=== PATIENT | female | born 1975 | race Two or more races ===

== ENCOUNTER 2024-03-26 11:38 | Emergency (ER) | payer BC ==
[~2024-03-26] VITALS: Ht 172.7 cm; Wt 81.6 kg
[2024-03-26] MEDS ORDERED: SINGULAIR4 M1 PO (11:54)
[2024-03-26] MEDS ORDERED: PRISTIQ25 MG PO (11:54)
[2024-03-26 11:55] VITALS: BP 118/79; O2SAT 100
[2024-03-26] MEDS ORDERED: PROAIR RESPICL90 MCG (11:55)
[2024-03-26] MEDS ORDERED: AMOX-CLAV 875-1 EACH PO (12:36)
[2024-03-26] MEDS ORDERED: CEFTRIAXONE SODIUM 1,000 MG VIAL ONE (12:40)
[2024-03-26] MEDS ORDERED: KETOROLAC TROMETHAMINE 60 MG VIAL IM ONE ×2 (12:40→12:45)
[2024-03-26] MEDS ORDERED: CEFTRIAXONE SODIUM 1,000 MG VIAL IM ONE (12:45)
== END 2024-03-26 13:08 | disposition home or self-care (01) ==
LOC: ER 11:41
DX: J03.90 Acute tonsillitis, unspecified (principal)